=== PATIENT | female | born 1990 | race Caucasian/White ===

== ENCOUNTER 2016-12-15 08:05 | Emergency (ER) | payer SELFPAY ==
[2016-12-15] MEDS ORDERED: ONDANSETRON HCL INJ/PF 4 MG/2 ML SDV IV ONE (09:39)
[2016-12-15] MEDS ORDERED: ONDANSETRON 4 MG TAB.RAPDIS PO ONE (09:40)
[2016-12-15] MEDS ORDERED: NORMAL SALINE 1000 ML 1,000 ML IV PRN (09:40)
[2016-12-15] MEDS ORDERED: ACETAMINOPHEN 325 MG TABLET PO ONE (09:43)
--- NOTE | 2016-12-15 10:49 | ER Document Report ---
ED General - General Chief Complaint: Pain All Over Stated Complaint: FLU SYMPTOMS TRAVEL OUTSIDE OF THE [place] IN LAST 30 DAYS: No - HPI Patient complains to provider of: flulike symptoms sore throat nausea vomiting Notes: Patient coming in for evaluation of flulike symptoms nausea vomiting. Patient states difficulty in holding down fluids at this time. Patient states she did did obtain a flu shot this year no sick contacts no recent travel no recent antibiotics. Patient states diffuse myalgias and body pain. - Related Data Allergies/Adverse Reactions: cefaclor [From Ceclor] Allergy (Verified 12/15/16 08:08) metoclopramide HCl [From Reglan] Allergy (Verified 12/15/16 08:08) Past Medical History - Social History Smoking Status: Never Smoker Chew tobacco use (# tins/day): No Frequency of alcohol use: None Drug Abuse: None Family History: CAD, CVA, DM, Hyperlipidemia, Hypertension, Malignancy, Thyroid Disfunction. denies: Arthritis Patient has suicidal ideation: No Patient has homicidal ideation: No Pulmonary Medical History: Reports: Hx Asthma Neurological Medical History: Reports: Hx Migraine Renal/ Medical History: Reports: Hx Ovarian Cysts. Denies: Hx Peritoneal Dialysis Musculoskeltal Medical History: Reports Hx Musculoskeletal Trauma - fr arms Traumatic Medical History: Reports: Hx Fractures - both arms Past Surgical History: Reports: Hx Adenoidectomy, Hx Gynecologic Surgery - ovarian cyst removed, Hx Tonsillectomy - Immunizations Immunizations up to date: Yes Hx Diphtheria, Pertussis, Tetanus Vaccination: Yes - 2014 Review of Systems - Review of Systems Constitutional: Fever, Malaise, Weakness EENT: No symptoms reported Cardiovascular: No symptoms reported Respiratory: No symptoms reported Gastrointestinal: Nausea, Vomiting Genitourinary: No symptoms reported Female Genitourinary: No symptoms reported Musculoskeletal: Muscle pain Skin: No symptoms reported Hematologic/Lymphatic: No symptoms reported Neurological/Psychological: No symptoms reported -: Yes All other systems reviewed and negative Physical Exam - Vital signs Vitals: Temp Pulse Resp BP Pulse Ox 98.1 F 125 H 20 123/88 H 100 12/15/16 08:09 12/15/16 08:09 12/15/16 08:09 12/15/16 08:09 12/15/16 08:09 Interpretation: Tachycardic - General General appearance: Appears well, Alert - HEENT Head: Normocephalic, Atraumatic Eyes: Normal Pupils: PERRL - Respiratory Respiratory status: No respiratory distress Chest status: Nontender Breath sounds: Normal Chest palpation: Normal - Cardiovascular Rhythm: Tachycardia Heart sounds: Normal auscultation Murmur: No - Abdominal Inspection: Normal Distension: No distension Bowel sounds: Normal Tenderness: Nontender Organomegaly: No organomegaly - Back Back: Normal, Nontender - Extremities General upper extremity: Normal inspection, Nontender, Normal color, Normal ROM , Normal temperature General lower extremity: Normal inspection, Nontender, Normal color, Normal ROM , Normal temperature, Normal weight bearing. No: Ivonne's sign - Neurological Neuro grossly intact: Yes Cognition: Normal Orientation: AAOx4 Petros Coma Scale Eye Opening: Spontaneous [place] Coma Scale Verbal: Oriented Petros Coma Scale Motor: Obeys Commands Petros Coma Scale Total: 15 Speech: Normal Motor strength normal: LUE, RUE, LLE, RLE Sensory: Normal - Psychological Associated symptoms: Normal affect, Normal mood - Skin Skin Temperature: Warm Skin Moisture: Dry Skin Color: Normal Course - Re-evaluation Re-evalutation: 12/15/16 14:50 Patient's flu swabs return positive for flu type A. Patient feeling better after hydration and nausea medication. Will prescribe nausea medication for home patient is to drink plenty of fluids to stay hydrated patient was educated about the course of the flu. Discharged home - Vital Signs Vital signs: Temp Pulse Resp BP Pulse Ox 98.3 F 72 16 112/68 100 12/15/16 11:23 12/15/16 11:23 12/15/16 11:23 12/15/16 11:23 12/15/16 11:23 Discharge - Discharge Clinical Impression: Influenza A Condition: Good Disposition: HOME, SELF-CARE Instructions: Influenza ([facility]) [id number] Additional Instructions: Continue to take Tylenol Motrin for your pain. Me should she drink plenty of fluids to stay well hydrated. He may take nausea medication as prescribed for any nausea. Flu symptoms usually last for approximately a week and does take the body some time to recover you aspect cough and feeling unwell to last for last 2 weeks Prescriptions: Ondansetron [Zofran Odt 4 mg Tablet] 1 - 2 tab PO Q4H PRN #30 tab.rapdis PRN Reason: For Nausea/Vomiting Promethazine HCl [Phenergan 25 mg Tablet] 1 - 2 tab PO Q6H PRN #30 tablet PRN Reason: Forms: Return to Work
[2016-12-15 11:25] VITALS: BP 112/68
== END 2016-12-15 11:23 | disposition home or self-care (01) ==
LOC: ER 08:05
DX: J11.1 Influenza due to unidentified influenza virus with other respiratory manifestations (principal); R11.2 Nausea with vomiting, unspecified; M79.1 Myalgia; J45.909 Unspecified asthma, uncomplicated; R50.9 Fever, unspecified; R53.81 Other malaise; R53.1 Weakness; R00.0 Tachycardia, unspecified; Z88.1 Allergy status to other antibiotic agents; Z88.8 Allergy status to other drugs, medicaments and biological substances
CPT/HCPCS: 99283; 96360; 87070; 87880; 87804; S0119; J7030

== ENCOUNTER 2017-01-20 12:47 | Emergency (ER) | payer SELFPAY ==
[2017-01-20 12:51] VITALS: BP 104/67
--- NOTE | 2017-01-20 12:56 | ER Document Report ---
ED Medical Screen (RME) - General Stated Complaint: DIFFICULTY BREATHING Notes: Patient has seasonal allergies and asthma. She is out of her inhaler, and has no local doctor and needs a refill. Difficulty breathing is intermittent. No breathing difficulty at this time. I have greeted and performed a rapid initial assessment of this patient. A comprehensive ED assessment and evaluation of the patient, analysis of test results and completion of the medical decision making process will be conducted by additional ED providers. TRAVEL OUTSIDE OF THE [place] IN LAST 30 DAYS: No - Related Data Allergies/Adverse Reactions: cefaclor [From Ceclor] Allergy (Verified 12/15/16 08:08) metoclopramide HCl [From Reglan] Allergy (Verified 12/15/16 08:08) Past Medical History Pulmonary Medical History: Reports: Hx Asthma Neurological Medical History: Reports: Hx Migraine Renal/ Medical History: Reports: Hx Ovarian Cysts. Denies: Hx Peritoneal Dialysis Musculoskeltal Medical History: Reports Hx Musculoskeletal Trauma - fr arms Traumatic Medical History: Reports: Hx Fractures - both arms Past Surgical History: Reports: Hx Adenoidectomy, Hx Gynecologic Surgery - ovarian cyst removed, Hx Tonsillectomy - Immunizations Immunizations up to date: Yes Hx Diphtheria, Pertussis, Tetanus Vaccination: Yes - 2014 Physical Exam - Vital signs Vitals: Temp Pulse Resp BP Pulse Ox 97.7 F 72 18 104/67 100 01/20/17 12:50 01/20/17 12:50 01/20/17 12:50 01/20/17 12:50 01/20/17 12:50 - Respiratory Notes: Lungs clear to auscultation. No respiratory distress. Course - Vital Signs Vital signs: Temp Pulse Resp BP Pulse Ox 97.7 F 72 18 104/67 100 01/20/17 12:50 01/20/17 12:50 01/20/17 12:50 01/20/17 12:50 01/20/17 12:50
--- NOTE | 2017-01-20 13:43 | ER Document Report ---
ED Respiratory Problem - General Chief Complaint: Medication Refill Stated Complaint: DIFFICULTY BREATHING Notes: Patient is requesting a prescription for an albuterol inhaler. She says that she has had lifelong asthma. Does not have insurance and does not have the money to pay for a doctor's visit to get her medication prescription. She uses the inhaler just a couple of times a day, and as needed. No other medical problems except for migraine headaches. Has seasonal allergies. No recent illness or fever. TRAVEL OUTSIDE OF THE [place] IN LAST 30 DAYS: No - HPI Patient complains to provider of: Asthma - Related Data Allergies/Adverse Reactions: cefaclor [From Ceclor] Allergy (Verified 01/20/17 12:54) metoclopramide HCl [From Reglan] Allergy (Verified 01/20/17 12:54) Past Medical History - Social History Smoking Status: Never Smoker Chew tobacco use (# tins/day): No Frequency of alcohol use: Occasional Drug Abuse: None Family History: CAD, CVA, DM, Hyperlipidemia, Hypertension, Malignancy, Thyroid Disfunction. denies: Arthritis Patient has suicidal ideation: No Patient has homicidal ideation: No Pulmonary Medical History: Reports: Hx Asthma Neurological Medical History: Reports: Hx Migraine Renal/ Medical History: Reports: Hx Ovarian Cysts. Denies: Hx Peritoneal Dialysis Musculoskeltal Medical History: Reports Hx Musculoskeletal Trauma - fr arms Traumatic Medical History: Reports: Hx Fractures - both arms Past Surgical History: Reports: Hx Adenoidectomy, Hx Gynecologic Surgery - ovarian cyst removed, Hx Tonsillectomy - Immunizations Immunizations up to date: Yes Hx Diphtheria, Pertussis, Tetanus Vaccination: Yes - 2014 Review of Systems - Review of Systems Constitutional: denies: Fever Cardiovascular: denies: Chest pain Respiratory: Cough - Occasionally, Wheezing - Intermittently Gastrointestinal: denies: Abdominal pain, Diarrhea, Nausea, Vomiting Skin: denies: Rash Physical Exam - Vital signs Vitals: Temp Pulse Resp BP Pulse Ox 97.7 F 72 18 104/67 100 01/20/17 12:50 01/20/17 12:50 01/20/17 12:50 01/20/17 12:50 01/20/17 12:50 Interpretation: Normal - Notes Notes: PHYSICAL EXAMINATION: GENERAL: Well-appearing, in no acute distress. Vital signs are all normal. HEAD: Atraumatic, normocephalic. LUNGS: Breath sounds clear and equal bilaterally. No wheezes heard at this time. HEART: Regular rate and rhythm without murmurs. ABDOMEN: Soft, nontender. No guarding or rebound. EXTREMITIES: Normal range of motion without pain. No swelling. NEUROLOGICAL: Normal speech, normal gait. Normal sensory, motor, and reflex exams. Awake, alert, and oriented x3. Cranial nerves normal. SKIN: Warm, dry, no rashes. Course - Vital Signs Vital signs: Temp Pulse Resp BP Pulse Ox 97.7 F 72 18 104/67 100 01/20/17 12:50 01/20/17 12:50 01/20/17 12:50 01/20/17 12:50 01/20/17 12:50 Discharge - Discharge Clinical Impression: Asthma Qualifiers: Asthma severity: mild intermittent Asthma complication type: uncomplicated Qualified Code(s): J45.20 - Mild intermittent asthma, uncomplicated Condition: Stable Disposition: HOME, SELF-CARE Additional Instructions: ASTHMA: You have been diagnosed as having asthma. This is a condition where there is episodic tightness in the bronchial tubes. Allergies, infections, and polluted or cold air may be contributing factors. Emergency treatment of a severe asthma attack may include adrenaline shots , or bronchodilator aerosol. You may feel lightheaded, have a decreased exercise tolerance and a rapid pulse for an hour or two. Rest and get plenty of fluids. Home treatment of asthma requires bronchodilator drugs. These can be administered by injection, inhalation, or by mouth. Antibiotics and corticosteroids may be required for some patients. You should avoid chemical fumes, dusts, pollens, and exercising in very cold or dry air. If you smoke, stop!! If you develop a fever, increased wheezing, chest pain, or severe shortness of breath, you should contact the doctor immediately. INHALED BRONCHODILATORS: You have received treatment(s) of and/or prescription for an inhaled bronchodilator -- a medication which stimulates the airways in the lung to dilate. This improves the flow of air in asthma, bronchitis, and emphysema. These medicines have some similarity to adrenaline, and can cause similar side effects: shakiness, racing heart, and a sense of nervousness. These side effects decrease with time. Contact your doctor if these side effects are severe. Do not over-use the medicine. Too-frequent use of the inhaler may make it ineffective. Call your doctor if the inhaler is not controlling your symptoms at the prescribed doses. FOLLOW-UP CARE: If you have been referred to a physician for follow-up care, call the physician s office for an appointment as you were instructed or within the next two days. If you experience worsening or a significant change in your symptoms, notify the physician immediately or return to the Emergency Department at any time for re-evaluation. Prescriptions: Albuterol Sulfate [Ventolin HFA MDI 18 GM] 1 - 2 puff IH Q4HP PRN #1 mdi PRN Reason: Forms: Return to Work
== END 2017-01-20 14:25 | disposition home or self-care (01) ==
LOC: ER 12:47
DX: Z76.0 Encounter for issue of repeat prescription (principal); J45.20 Mild intermittent asthma, uncomplicated; R05 Cough; Z59.9 Problem related to housing and economic circumstances, unspecified; Z88.1 Allergy status to other antibiotic agents; Z88.8 Allergy status to other drugs, medicaments and biological substances
CPT/HCPCS: 99281